=== PATIENT | male | born 1950 | race Caucasian/White ===

== ENCOUNTER 2017-08-21 11:04 | Emergency (ER) | payer MEDICARE, BC, OTHER ==
[2017-08-21 11:48] VITALS: BP 164/79
[2017-08-21] MEDS ORDERED: Amoxicillin/Clavulanate K 875-125 MG Tab ONE (12:00)
[2017-08-21] MEDS ORDERED: predniSONE 10 MG Tab ONE (12:00)
--- NOTE | 2017-08-21 12:33 | EDM.PDOC ---
ED HPI GENERAL MEDICAL PROBLEM - General Chief Complaint: Respiratory Problem Stated Complaint: Sore throat Time Seen by Provider: 08/21/17 11:15 Source of Information: Reports: Patient, Family History Limitations: Reports: No Limitations - History of Present Illness Onset: Today Onset Date: 08/19/17 Duration: Day(s): (2), Getting Worse Location: Reports: Neck Quality: Reports: Ache, Sharp Severity: Moderate Improves with: Reports: None Worsens with: Reports: None Context: Reports: Other (Worsening sorethroat and laryngitis.) Associated Symptoms: Reports: Loss of Appetite Treatments TUTOR COORDINATOR: Reports: Other (see below) Other Treatments TUTOR COORDINATOR: dayquil like medication, meleauca - Related Data Allergies Allergy/AdvReac Type Severity Reaction Status Date / Time niacin Allergy Cannot Verified 08/21/17 12:02 Remember Home Meds: Home Meds SitaGLIPtin [Januvia] 25 mg PO DAILY 08/21/17 [History] atorvaSTATin Calcium [Atorvastatin Calcium] 20 mg PO DAILY 08/21/17 [History] glipiZIDE [Glipizide ER] 5 mg PO DAILY 08/21/17 [History] metFORMIN HCl [Metformin HCl] 1,000 mg PO BID 08/21/17 [History] Past Medical History Other Cardiovascular History: No longer takes medication for these problems Musculoskeletal History: Reports: Other (See Below) Other Musculoskeletal History: 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 Loss of muscle and some use. Endocrine/Metabolic History: Reports: Diabetes, Type II - Infectious Disease History Infectious Disease History: Reports: Chicken Pox, Measles, Mumps, Rubella - Past Surgical History Musculoskeletal Surgical History: Reports: Other (See Below) Other Musculoskeletal Surgeries/Procedures:: above. Social & Family History - Family History Family Medical History: Noncontributory - Tobacco Use Smoking Status *Q: Former Smoker Years of Tobacco use: 9 Used Tobacco, but Quit: Yes Month Tobacco Last Used: 12 Second Hand Smoke Exposure: No - Caffeine Use Caffeine Use: Reports: Soda - Alcohol Use Days Per Week of Alcohol Use: 1 Number of Drinks Per Day: 3 Total Drinks Per Week: 3 Date of Last Drink: 08/14/17 - Recreational Drug Use Recreational Drug Use: No ED ROS GENERAL - Review of Systems Review Of Systems: See Below Constitutional: Reports: Fever (Low grade), Decreased Appetite HEENT: Reports: Throat Pain Respiratory: Reports: Cough, Sputum Cardiovascular: Reports: No Symptoms Endocrine: Reports: No Symptoms GI/Abdominal: Reports: No Symptoms : Reports: No Symptoms Musculoskeletal: Reports: No Symptoms Skin: Reports: No Symptoms Neurological: Reports: No Symptoms Psychiatric: Reports: No Symptoms Hematologic/Lymphatic: Reports: No Symptoms Immunologic: Reports: No Symptoms ED EXAM, GENERAL - Physical Exam Exam: See Below Exam Limited By: No Limitations General Appearance: Alert, WD/WN, No Apparent Distress Eye Exam: Bilateral Eye: EOMI, Normal Fundi, Normal Inspection Ears: Normal External Exam, Normal Canal, Hearing Grossly Normal, Normal TMs Ear Exam: Bilateral Ear: Auricle Normal, Canal Normal, TM normal Nose: Normal Inspection, Normal Mucosa, No Blood Throat/Mouth: Inflammation (Pharynx) Head: Atraumatic, Normocephalic Neck: Full Range of Motion, Lymphadenopathy (R), Lymphadenopathy (L), Tender Lateral (Bilateral) Respiratory/Chest: No Respiratory Distress, Lungs Clear, Normal Breath Sounds, No Accessory Muscle Use, Chest Non-Tender Cardiovascular: Normal Peripheral Pulses, Regular Rate, Rhythm, No Edema, No Gallop, No JVD, No Murmur, No Rub GI/Abdominal: Normal Bowel Sounds, Soft, Non-Tender, No Organomegaly, No Distention, No Abnormal Bruit, No Mass Back Exam: Normal Inspection, Full Range of Motion, NT Extremities: Normal Inspection, Normal Range of Motion, Non-Tender, Normal Capillary Refill, No Pedal Edema Neurological: Alert Psychiatric: Normal Affect, Normal Mood Skin Exam: Warm, Dry, Intact, Normal Color, No Rash Lymphatic: No Adenopathy Course - Vital Signs Text/Narrative:: Unremarkable ED course. He had a negative rapid strep test but he has a mildly elevated WBC. We will discharge him home on Augmentin 875 mg po bid x 10 days and Prednison 50 mg po q day for 3 days. Push fluids, tylenol 500 mg po q 4 hours, Ibuprofen 800 mg po q 6 hours, rest, steam, salt water gargles, lozenges , and return to ED if needed. Otherwise see PCP in 2 days for reevaluation. Last Recorded V/S: Last Vital Signs Temp 37.1 C 08/21/17 11:47 Pulse 98 08/21/17 11:47 Resp 16 08/21/17 11:47 BP 164/79 H 08/21/17 11:47 Pulse Ox 98 08/21/17 11:47 - Orders/Labs/Meds Orders: Active Orders 24 hr Category Date Time Status CULTURE STREP A CONFIRMATION [] Stat Lab 08/21/17 11:20 Results STREP SCRN A RAPID W CULT CONF [] Stat Lab 08/21/17 11:20 Results Labs: Laboratory Tests 08/21/17 Range/Units 11:20 WBC 12.2 H D (4.0-11.0) K/uL RBC 4.74 (4.50-6.50) M/uL Hgb 14.8 (13.0-18.0) g/dL Hct 39.2 L (40.0-54.0) % MCV 83 (76-96) fL MCH 31.2 (27.0-32.0) pg MCHC 37.8 H (31.0-35.0) g/dL RDW 12.4 (11.0-16.0) % Plt Count 206 (150-400) K/uL MPV 9.4 (6.0-10.0) fL Neut % (Auto) 67.1 (45.0-70.0) % Lymph % (Auto) 18.8 L (20.0-40.0) % [place] % (Auto) 12.7 H (3.0-10.0) % Eos % (Auto) 1.2 (1.0-5.0) % Baso % (Auto) 0.2 (0.0-0.5) % Neut # (Auto) 8.18 H (2.00-7.50) K/uL Lymph # (Auto) 2.30 (1.50-4.00) K/uL [place] # (Auto) 1.55 H (0.20-0.80) K/uL Eos # (Auto) 0.15 (0.04-0.40) K/uL Baso # (Auto) 0.03 (0.02-0.10) K/uL Departure - Departure Time of Disposition: 12:33 Disposition: Home, Self-Care 01 Condition: Good Clinical Impression: Pharyngitis, Laryngitis - Discharge Information Instructions: Amoxicillin; Clavulanic Acid tablets, Pharyngitis, Prednisone tablets, Hoarseness Referrals: PCP,None [Primary Care Provider] - Forms: ED Department Discharge Care Plan Goals: Use steam and can take motrin and tylenol for discomfort. Take Augmentin 2 x day (amoxicillin/Clavulanate and take 50 mg prednisone or 5 tablets daily for 3 days as instructed - My Orders Last 24 Hours: My Active Orders 08/21/17 11:20 CULTURE STREP A CONFIRMATION [RM] Stat STREP SCRN A RAPID W CULT CONF [] Stat - Assessment/Plan Last 24 Hours: My Active Orders 08/21/17 11:20 CULTURE STREP A CONFIRMATION [RM] Stat STREP SCRN A RAPID W CULT CONF [] Stat
== END 2017-08-21 12:25 | disposition home or self-care (01) ==
LOC: LB.ED 11:04
DX: J02.9 Acute pharyngitis, unspecified (principal); J04.0 Acute laryngitis; E11.9 Type 2 diabetes mellitus without complications; Z87.891 Personal history of nicotine dependence; Z79.84 Long term (current) use of oral hypoglycemic drugs; Z79.899 Other long term (current) drug therapy; Z88.8 Allergy status to other drugs, medicaments and biological substances
CPT/HCPCS: 36415; 85025; 87081; 87430; 99283; A9270

== ENCOUNTER 2020-08-16 10:41 | Day surgery (SDC) | payer MEDICARE, OTHER ==
[~2020-08-16 10:41] MED LIST: Metoclopramide 10 MG/2 ML SDV IV PRN
[2020-08-16] MEDS: Sodium Chloride 0.9% 1,000 ML IV SCH (13:09)
[2020-08-16] MEDS ORDERED: Propofol 1,000 MG/100 ML SDV ONE (14:30)
[2020-08-16 15:00] VITALS: BP 114/92; PULSE 75
--- NOTE | 2020-08-18 01:17 | OR ---
DATE OF OPERATION: 08/16/2020 SURGEON: Willie Garcia MD PREOPERATIVE DIAGNOSIS: Personal history of colorectal polyps. POSTOPERATIVE DIAGNOSIS: Personal history of colorectal polyps. PROCEDURE: Colonoscopy with polypectomy. ANESTHESIA: MAC. ESTIMATED BLOOD LOSS: Minimal. COMPLICATIONS: None. INDICATION FOR THE PROCEDURE: The patient is a 69-year-old male, here today for 5-year followup colonoscopy and was found to have a rectal polyp on the last one. He otherwise denies any change in bowel habits since that time. DESCRIPTION OF PROCEDURE: Informed consent was obtained from the patient. The patient was taken to the operating room, placed on table in the left lateral decubitus position. Monitored anesthesia care was administered. Digital rectal exam performed, it was normal. Colonoscope was then advanced through the anus directed towards the cecum. Cecum was reached and identified by the ileocecal valve. Colonoscope was then slowly withdrawn. He did have 1 small sessile polyp in the rectum. This was removed with hot snare polypectomy. Polyp was retrieved. The remainder of the colon was unremarkable. Colonoscope then withdrawn. FINDINGS: Rectal polyp. RECOMMENDATIONS: Would recommend repeat surveillance colonoscopy in 5 years. WILBER/ANTHONY /[id number]
== END 2020-08-16 15:40 | disposition home or self-care (01) ==
LOC: LB.SDS 10:41
PROVIDERS: ATTEND Surgery
DX: Z12.11 Encounter for screening for malignant neoplasm of colon (principal); D12.8 Benign neoplasm of rectum; E11.9 Type 2 diabetes mellitus without complications; I10 Essential (primary) hypertension; Z98.890 Other specified postprocedural states
CPT/HCPCS: 82962; J2704; J7030

== ENCOUNTER 2024-08-22 09:58 | Emergency (ER) | payer MEDICARE, OTHER ==
[2024-08-22] MEDS: Sodium Chloride 0.9% 1,000 ML IV ONE ×2 (10:22→11:22)
[2024-08-22 10:23] LABS: BASOPHILS ABSOLUTE AUTO 0.01 K/uL (0.02-0.10); BASOPHILS PERCENT AUTO 0.2 % (0.0-0.5); HEMATOCRIT 41.7 % (40.0-54.0); LYMPHOCYTES ABSOLUTE AUTO 1.17 K/uL (1.50-4.00); LYMPHOCYTES PERCENT AUTO 20.3 % (20.0-40.0); MEAN CORPUSCULAR HEMOGLOBIN 30.5 pg (27.0-32.0); MEAN CORPUSCULAR VOLUME 85 fL (76-96); MEAN PLATELET VOLUME 9.9 fL (6.0-10.0); MONOCYTES ABSOLUTE AUTO 0.75 K/uL (0.20-0.80); NEUTROPHILS ABSOLUTE AUTO 3.84 K/uL (2.00-7.50); NEUTROPHILS PERCENT AUTO 66.5 % (45.0-70.0); PLATELET COUNT,PLT 143 K/uL (150-400); RED BLOOD CELL COUNT 4.91 M/uL (4.50-6.50); RED CELL DISTRIBUTION WIDTH 12.6 % (11.0-16.0); WHITE BLOOD CELL COUNT,WBC 5.8 K/uL (4.0-11.0)
[2024-08-22] MEDS: Ondansetron 4 MG/2 ML SDV IVPUSH ONE (10:28)
[2024-08-22 10:43] LABS: A/G RATIO 1.2 (0.8-2.0); ALBUMIN 3.8 g/dL (3.4-5.0); ANION GAP 16.8 mmol/L (5.0-15.0); BILIRUBIN TOTAL 0.6 mg/dL (0.0-1.0); BUN/CREATININE RATIO 18.6 (6-25); CALCIUM 8.6 mg/dL (8.5-10.1); CARBON DIOXIDE,CO2 23.9 mmol/L (21.0-32.0); CREATININE 1.45 mg/dL (0.70-1.30); EST CRCL DRUG DOSING (CG) 40.33 mL/min; POTASSIUM,K 4.7 mmol/L (3.5-5.1); PROTEIN TOTAL,TP 7.1 g/dL (6.4-8.2)
[2024-08-22] MEDS: Benzonatate 100 MG Cap PO ONE (11:01)
[2024-08-22 11:11] LABS: INFLUENZA A NAA POSITIVE (NEGATIVE); INFLUENZA B NAA NEGATIVE (NEGATIVE); RESPIRATORY SYNCYTIAL VIR NAA NEGATIVE (NEGATIVE)
[2024-08-22 11:15] LABS: CORONAVIRUS COVID-19 NAA NEGATIVE (NEGATIVE)
[2024-08-22 13:58] VITALS: BP 137/93; PULSE 78
== END 2024-08-22 13:39 | disposition home or self-care (01) ==
LOC: LB.ED 09:58
DX: J10.1 Influenza due to other identified influenza virus with other respiratory manifestations (principal); E86.0 Dehydration; I10 Essential (primary) hypertension; E11.9 Type 2 diabetes mellitus without complications; Z79.82 Long term (current) use of aspirin; Z79.84 Long term (current) use of oral hypoglycemic drugs; Z79.899 Other long term (current) drug therapy
CPT/HCPCS: 0241U; 36415; 71045; 80053; 83605; 83735; 85025; 96361; 96374; 99284; 99284-25; A9270-GY; J2405; J7030